=== PATIENT | male | born 2000 | race Caucasian/White ===

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

== ENCOUNTER 2021-05-24 16:28 | Inpatient (IN) | payer OTHER ==
[~2021-05-24] VITALS: Ht 180.3 cm; Wt 113.0 kg
--- NOTE | 2021-05-24 16:40 | NUR ---
TO ROOM FOR TRIAGE. MOTHER PRESENT
--- NOTE | 2021-05-24 17:00 | NUR ---
MEDICATED WITH MORPHINE 4MG IVP FOR C/O 10/10 ABD PAIN.
[2021-05-24 17:09] LABS: GFR > 60 ML/MIN (>=60 (CALC)); GFR FOR AFR.AMER. > 60 ML/MIN (>=60 (CALC))
[2021-05-24 17:28] LABS: HEMATOCRIT 43.8 % (39.0-50.0); HEMOGLOBIN 14.9 g/dl (14.0-18.0); IMMATURE GRANULOCYTES 1.1 % (0.0-5.0); MEAN CELL VOLUME 90.1 fL CALC (80.0-100.0); MEAN CORPUSCULAR HGB 30.7 pG CALC (26.0-32.0); NEUT# 22.88 thou/uL (1.82-7.42); RED BLOOD COUNT 4.86 mill/uL (4.70-6.10); RED CELL DISTRI WIDTH 13.2 % (11.5-15.5)
[2021-05-24 17:39] LABS: ALBUMIN 4.4 g/dL (3.2-5.0); ALKALINE PHOSPHATASE 37 u/l (38-126); ANION GAP 16 (6-22 (CALC)); BUN 18 mg/dL (8-21); BUN/CREATININE RATIO 21 (12-20 (CALC)); CARBON DIOXIDE 24 mmol/l (22-30); CHLORIDE 94 mmol/l (95-108); CREATININE 0.9 mg/dL (0.7-1.3); GFR > 60 ML/MIN (>=60 (CALC)); GFR FOR AFR.AMER. > 60 ML/MIN (>=60 (CALC)); LIPASE < 10 u/l (23-300); POTASSIUM 3.7 mmol/l (3.5-5.1); SGOT/AST 38 u/l (17-59); SODIUM 131 mmol/l (137-146); TOTAL PROTEIN 7.8 g/dL (6.3-8.2)
[2021-05-24 19:49] LABS: URINE BILIRUBIN - DIPSTICK NEGATIVE (NEGATIVE); URINE BLOOD DIPSTICK SMALL (NEGATIVE); URINE COLOR ORANGE; URINE GLUCOSE - DIPSTICK NEGATIVE (NEGATIVE); URINE KETONE TRACE mg/dL (NEGATIVE); URINE LEUK ESTERASE NEGATIVE (NEGATIVE); URINE PH 5.5 (4.5-8.0); URINE PROTEIN - DIPSTICK 30 mg/dL (NEG-TRACE); URINE SPECIFIC GRAVITY 1.015
[2021-05-24 20:01] LABS: URINE NITRITE - DIPSTICK POSITIVE (Negative)
[2021-05-24 22:30] VITALS: BP 146/87
[2021-05-24 22:45] VITALS: BP 129/73
[2021-05-24 23:10] VITALS: BP 125/69
[2021-05-24 23:25] VITALS: BP 122/77
[2021-05-24 23:55] VITALS: BP 102/60
[2021-05-25 01:25] VITALS: BP 111/67
--- NOTE | 2021-05-25 01:57 | NUR ---
05/24/212229 PATIENT RECIEVED TO ROOM 278 POST-OP. BEDSIDE REPORT RECEIVED FROM PACU NURSE. PATIENT AWAKE, ALERT AND ORIENTED X3. VSS. LAC IV INTACT AND PATENT. ABDOMEN TENDER TO TOUCH. DRESSING TO MID ABDOMEN, CLEAN DRY AND INTACT. PINKY NOTED TO LEFT ABDOMEN, SCANT AMOUNT OF SANGUINEOUS FLUID. URINARY CATHETER TO GRAVITY, CLEAR HECTOR URINE NOTED. SCD APPLIED TO BILATERAL LOWER EXTREMITIES. PATIENT DENIES PAIN AT THIS TIME. NO DISTRESS NOTED. CALL LIGHT WITHIN REACH INSTRUCTED TO CALL FOR ASSISTANCE.
[2021-05-25 04:37] VITALS: BP 158/74
--- NOTE | 2021-05-25 07:00 | NUR ---
REPORT FROM MAE HUANG. ASSUMED PT CARE.
[2021-05-25 08:31] LABS: HEMOGLOBIN 13.5 g/dl (14.0-18.0); MEAN CELL VOLUME 89.9 fL CALC (80.0-100.0); MEAN CORPUSCULAR HGB 30.3 pG CALC (26.0-32.0); MEAN CORPUSCULAR HGB CONC 33.8 g/dL CAL (32.0-36.0); NEUT# 10.7 thou/uL (1.82-7.42); RED BLOOD COUNT 4.45 mill/uL (4.70-6.10); RED CELL DISTRI WIDTH 13.4 % (11.5-15.5)
--- NOTE | 2021-05-25 08:50 | NUR ---
PT NOTED SITTING UP IN BED. NO APPARENT DISTRESS NOTED. PT DENIES ANY PAIN OR DISCOMFORT. ABD BINDER IN PLACE. DRESSING CDI. IV FLUIDS INFUSING WITHOUT DIFFICULTY. WHEAT PATENT DRAINING TO GRAVITY. PINKY DRAIN NOTED WITH SEROSANGUINOUS DRAINING IN BULB. NO CURRENT WANTS OR NEEDS. DISCUSSED POC. PT VERBALIZED UNDERSTANDING. ICE CHIPS PROVIDED. CALL LIGHT WITHIN REACH. WILL CONTINUE TO MONITOR.
[2021-05-25 08:54] LABS: ANION GAP 13 (6-22 (CALC)); BUN 19 mg/dL (8-21); BUN/CREATININE RATIO 23 (12-20 (CALC)); CARBON DIOXIDE 22 mmol/l (22-30); CHLORIDE 102 mmol/l (95-108); CREATININE 0.8 mg/dL (0.7-1.3); GFR > 60 ML/MIN (>=60 (CALC)); GFR FOR AFR.AMER. > 60 ML/MIN (>=60 (CALC)); POTASSIUM 3.4 mmol/l (3.5-5.1); SODIUM 133 mmol/l (137-146)
[2021-05-25 10:35] VITALS: BP 150/92
--- NOTE | 2021-05-25 10:43 | NUR ---
PT MOTHER UPDATED AT THIS TIME.
--- NOTE | 2021-05-25 11:15 | NUR ---
PT C/O CHEST PRESSURE AND ABD PAIN 05/22. CURRENT VS 198/105 HR 118, 96% RA TEMP 99.6 RR 22. PT ALSO HAS C/O NAUSEA, MEDICATED FOR PAIN AND NAUSEA AT THIS TIME. STAT EKG ORDERED. WHEAT PATENT DRAINING TO GRAVITY. DRESSING CDI, WITH ABD BINDER IN PLACE. PINKY DRAIN NOTED WITH SMALL AMOUNT OF SEROSANGUINEOUS DRAINAGE. PHYSICIAN NOTIFIED. WILL CONTINUE TO MONITOR.
[2021-05-25 12:42] VITALS: BP 145/74
--- NOTE | 2021-05-25 13:30 | NUR ---
DR KATE AT BEDSIDE.
[2021-05-25 15:21] VITALS: BP 168/97
--- NOTE | 2021-05-25 17:20 | NUR ---
PT RESTING IN BED. NO APPARENT DISTRESS NOTED. RESPIRATIONS EVEN AND UNLABORED. CALL LIGHT WITHIN REACH. WILL CONTINUE TO MONITOR.
[2021-05-25 18:55] VITALS: BP 151/94
--- NOTE | 2021-05-25 20:10 | NUR ---
SITTING UP IN BED WATCHING TELEVISION. C/O LEFT SIDE ABDOMINAL PAIN 6 ON SCALE 0-10. SCANT AMOUNT OF DRAINAGE NOTED IN PINKY DRAIN. PATIENT MEDICATED WITH 0.5MG OF DILAUDID FOR PAIN. NO FURTHER CONCERNS EXPRESSED. CALL LIGHT WITHIN REACH.-
--- NOTE | 2021-05-25 21:00 | NUR ---
RESTING QUIETLY IN BED, SPOUSE AT BEDSIDE. NGT TO LOW CONTINUOUS SUCTION, GREEN DRAINAGE NOTED. RESPIRATIONS EVEN, UNLABORED; EXPIRATORY WHEEZES NOTED. ABDOMEN DISTENDED, TENDER TO TOUCH. PINKY DRAINS PATENT. WHEAT TO GRAVITY, DARK HECTOR URINE NOTED. NO DISTRESS NOTED AT THIS TIME. VERBALIZES PAIN IS 3 ON SCALE 0-10. CALL LIGHT WITHIN REACH.
--- NOTE | 2021-05-25 23:13 | NUR ---
05/25/212009 SITTING UP IN BED WATCHING TV. C/O LEFT SIDED ABDOMINAL PAIN 6 ON SCALE 0-10. PINKY DRAIN PATENT, SCANT AMOUNT OF DRAINAGE NOTED. DILAUDID 0.5MG GIVEN. NO FURTHER CONCERNS EXPRESSED, CALL LIGHT WITHIN REACH.
[2021-05-26] VITALS: BP 153/92
--- NOTE | 2021-05-26 00:29 | NUR ---
DISCONTINUED 16F URINARY CATHETER. 10ML SALINE REMOVED FROM BALLOON. 600ML OF URINE EMPTIED FROM BAG. INSTRUCTED ON USE OF URINAL FOR MEASUREMENT. PATIENT TOLERATED WELL.
--- NOTE | 2021-05-26 03:14 | NUR ---
FIRST VOID AFTER WHEAT D/C'D, 275ML URINE OUT.
[2021-05-26 04:00] VITALS: BP 140/82
--- NOTE | 2021-05-26 04:47 | NUR ---
RESTING QUIETLY EYES CLOSED. BED IN LOW POSITION. CALL LIGHT WITHIN REACH.
--- NOTE | 2021-05-26 07:00 | NUR ---
PT REPORT RECEIVED FROM NIGHT NURSEDIXIE.
[2021-05-26 08:00] VITALS: BP 149/78
--- NOTE | 2021-05-26 08:00 | NUR ---
PT WAS FOUND RESTING IN BED IN SEMI-DONALD'S POSITION;PT IS A&OX3;VS AND ASSESSMENT WERE COMPLETED;HEART SOUNDS ARE REGULAR IN RATE AND RHYTHM;LUNG SOUNDS ARE CLEAR;RESPIRATIONS ARE EVEN AND UNLABORED ON RA;PT IS POST-OP APPENDECTOMY DAY 2;PT HAS A PINKY DRAIN IN THE LEFT ABDOMEN THAT IS DRAINING SEROSANGUINOUS FLUID AT THIS TIME;SURGICAL DRESSING IN CDI WITH AN ABDOMINAL BINDER IN PLACE OVER THE TOP;SCDS IN PLACE;#20G IV IN LAC IS RUNNING D5 1/2NS@100ML/HR;IV SITE APPEARS FREE OF COMPLICATIONS AT THIS TIME;SAFETY PRECAUTIONS IN PLACE;CALL LIGHT WITHIN REACH;PT ENCOURAGED TO CALL WITH ANY NEEDS OR CONCERNS;WILL CONTINUE TO MONITOR.
--- NOTE | 2021-05-26 10:30 | NUR ---
AND TALIB ARMSTRONG AT BEDSIDE DISCUSSING POC WITH PT
--- NOTE | 2021-05-26 11:00 | NUR ---
IS AT BEDSIDE DISCUSSING POC WITH PT
--- NOTE | 2021-05-26 12:00 | NUR ---
PT WAS FOUND RESTING IN BED;DRESSING CHANGE WAS COMPLETED ON SURGICAL WOUND;4X4,GAUZE,ABD PAD AND TAPE WERE APPLIED;SURGICAL INCISION APPEARS FREE OF INFECTION AND IS INTACT AT THIS TIME;ABDOMINAL BINDER WAS REAPPLIED OVER THE TOP;SAFETY PRECAUTIONS IN PLACE;CALL LIGHT WITHIN REACH;WILL CONTINUE TO MONITOR.
--- NOTE | 2021-05-26 12:04 | NUR ---
Preliminary blood culture results show Gram (+) cocci in 1/[address] vials. Results reported to Dr. Craig. No new orders.
[2021-05-26 15:03] VITALS: BP 162/91
--- NOTE | 2021-05-26 16:00 | NUR ---
PT WAS FOUND SLEEPING IN BED;#20G IV IN LAC IS INFUSING D5 1/2NS@75ML/HR;IV SITE APPEARS FREE OF COMPLICATIONS AT THIS TIME;SAFETY PRECAUTIONS IN PLACE;CALL LIGHT WITHIN REACH;WILL CONTINUE TO MONITOR.
[2021-05-26 19:00] VITALS: BP 165/94
--- NOTE | 2021-05-26 20:00 | NUR ---
PATIENT RESTING IN BED AT THIS TIME-AWAKE ALERT AND ORIENTEDX3. PATIENT WITH NO APPETITE FOR DINNER. ONLY TAKING PO FLUIDS. STATES THAT HIS PAIN IS BETTER. ABD DRESSING IS CDI WITH PINKY DRAIN TO LEFT ABD INTACT AND DRAINING SMALL AMT OF SEROSANGUINOUS FLUID. ABD BINDER REPOSITIONED. ABD IS SOFT WITH HYPOACTIVE BS. IVF D51/2NS PATENT AND INFUSING VIA LAC SITE AT 75CC/HR. SITE REMAINS HEALTHY. SCD'S OFF AT THIS TIME PER PATIENT REQUEST-TOO HOT. ENCOURAGED AMBULATION IN [facility] WITH STAFF. NO PERIPHERAL EDEMA NOTED. PULSES ARE PALPABLE. SAFETY PRECAUTIONS REINFORCED. CALL LIGHT IN REACH.WILL CONT TO MONITOR.
--- NOTE | 2021-05-26 21:00 | NUR ---
PATIENT UP AND AMBULATING IN THE [place] WITH STAFF ON [id number] TO BED. STATES THAT HE IS PASSING SOME FLATUS. CALL LIGHT IN REACH. WILL CONT TO MONITOR.
[2021-05-27] VITALS: BP 143/75
--- NOTE | 2021-05-27 01:18 | NUR ---
PATIENT RESTING IN BED-C/O POST-OP PAIN 9/10 ON PAIN SCALE. MEDICATED WITH DILAUDID 1MG IVP FOR PAIN. ABD BINDER ADJUSTED. VOIDED 700CC OF HECTOR URINE IN URINAL. IVF PATENT AND INFUSING VIA LEFT AC SITE AT 75CC/HR. PROVIDED WITH GATORADE AND ICE. CALL LIGHT IN REACH. WILL CONT TO MONITOR.
[2021-05-27 04:00] VITALS: BP 147/79
--- NOTE | 2021-05-27 04:27 | NUR ---
PATIENT RESTING IN BED-C/O NAUSEA AND SPIT UP SMALL AMT OF CLEAR SECREATIONS. MEDICATED WITH ZOFRAN 4MG IVP FOR NAUSEA. IVF D51/2NS PATENT AND INFUSING VIA LEFT AC SITE. SITE REMAINS HEALTHY. CALL LIGHT IN REACH. WILL CONT TO MONITOR,
--- NOTE | 2021-05-27 06:13 | NUR ---
PATIENT RESTING IN BED. STATES THAT HE IS FEELING BETTER. WAS UP TO BSC AND HAD LIQUID BROWN STOOL-MODERATE AMT. IVF PATENT AND INFUSING VIA LAC SITE ORDERED. ZOSYN HUNG ORDERED. INSTRUCTED ONUSE OF IS Q1H WHILE AWAKE IN REPS OF 10. ABLE TO DEMONSTRATE PROPER USE OF THE DEVICE. PINKY DRAINED 10CC SEROSANGUNIOUS FLUID THIS SHIFT. DRINKING GATORADE AT THIS TIME. CALL LIGHT IN REACH. WILL CONT TO MONITOR.
[2021-05-27 06:29] LABS: HEMATOCRIT 34.1 % (39.0-50.0); IMMATURE GRANULOCYTES 0.4 % (0.0-5.0); MEAN CELL VOLUME 91.7 fL CALC (80.0-100.0); MEAN CORPUSCULAR HGB 30.4 pG CALC (26.0-32.0); MEAN CORPUSCULAR HGB CONC 33.1 g/dL CAL (32.0-36.0); NEUT# 6.99 thou/uL (1.82-7.42); RED BLOOD COUNT 3.72 mill/uL (4.70-6.10); RED CELL DISTRI WIDTH 14.1 % (11.5-15.5)
[2021-05-27 06:30] LABS: HEMOGLOBIN 11.3 g/dl (14.0-18.0)
[2021-05-27 06:32] LABS: ANION GAP 13 (6-22 (CALC)); BUN 13 mg/dL (8-21); BUN/CREATININE RATIO 20 (12-20 (CALC)); CARBON DIOXIDE 24 mmol/l (22-30); CHLORIDE 100 mmol/l (95-108); CREATININE 0.7 mg/dL (0.7-1.3); GFR > 60 ML/MIN (>=60 (CALC)); GFR FOR AFR.AMER. > 60 ML/MIN (>=60 (CALC)); POTASSIUM 3.1 mmol/l (3.5-5.1); SODIUM 133 mmol/l (137-146)
--- NOTE | 2021-05-27 10:33 | NUR ---
PT SEEN AWAKE, ALERT, ORIENTED X 3. PT WITH ABDOMINAL BINDER IN PLACE, MEDICATED FOR PAIN NEEDED. PT AMBULATORY IN ROOM. STOOL INCONTINENCE PER WATERY STOOL. NAD.
--- NOTE | 2021-05-27 13:55 | NUR ---
PT SEEN BY DR KATE THIS MORNING, PAIN MED CHANGED TO PO. PT TOLERATING CLEAR LIQUIDS A LITTLE AT A TIME. NAD.
[2021-05-27 16:05] VITALS: BP 143/87
--- NOTE | 2021-05-27 18:31 | NUR ---
DRESSING CHANGED TO LAC IV SITE, REDRESSED WHEN IN LEAKED. PT TRYING TO EAT A LITTLE, APPETITE NOT THERE.
[2021-05-27 19:00] VITALS: BP 116/81
--- NOTE | 2021-05-27 19:35 | NUR ---
PATIENT ALERT. ABLE TO MAKE NEEDS KNOW. VERY PLEASANT. ASSESSMENT DONE AT THIS TIME. ABDOMINAL BINDER REMAINS IN PLACE. DRESSING TO ABDOMINAL AREA APPEARS CLEAN DRY AND INTACT. PINKY DRAIN PATENT WITH VERY MINIMAL LIGHT RED OUTPUT. PATIENT HAS NO COMPLAINTS AT THIS TIME. ''I COULD SLEEP ALL NIGHT IF I COULD''. IV SITE TO LEFT AC APPEARS PATENT. BED IN LOWEST POSITION. CALL LIGHT AND BELONGINGS WITHIN REACH.
--- NOTE | 2021-05-27 20:12 | NUR ---
LOVENOX GIVEN PER ORDER. PATIENT REQUESTED TO BE ABLE TO COUNT BEFORE RECEIVING MEDICATION. MEDICATION GIVEN AFTER PATIENT COUNTED TO 3. PATIENT TOLERATED WELL. BED IN LOWEST POSITION. CALL LIGHT REMAINS WITHIN REACH.
--- NOTE | 2021-05-28 00:07 | NUR ---
GAVE PATIENT PRN PAIN MEDICATION PER REQUEST. TOLERATED WELL. EMPTIED PATIENTS URINAL WITH 500CC YELLOW URINE. PATIENT REQUESTED ORANGE JUICE AND RECEIVED IT.
[2021-05-28 01:32] VITALS: BP 135/66
--- NOTE | 2021-05-28 02:35 | NUR ---
PATIENT ASLEEP IN BED WITH EYES CLOSED AT THIS TIME. NO SIGNS OF DISTRESS OR PAIN OBSERVED. BED REMAINS IN LOWEST POSITION WITH CALL LIGHT IN REACH.
[2021-05-28 04:00] VITALS: BP 138/70
--- NOTE | 2021-05-28 07:05 | NUR ---
REPORT RECEIVED FROM AYUSHRN
[2021-05-28 09:39] VITALS: BP 132/86
--- NOTE | 2021-05-28 09:40 | NUR ---
PT RESTING IN SEMI FOWLERS POSITION,A&O X3;VS OBTAINED AND ASSESSMENT COMPLETED;PT DENIES ANY CURRENT PAIN OR DISCOMFORTS,PAIN SCALE AND REPORTING EDUCATED;PT POD #4 EXPLORATORY LAPAROTOMY WITH APPENDECTOMY;RESPIRATIONS EVEN AND UNLABORED ON RA,CLEAR LUNG SOUNDS;ABDOMEN SOFT ON PALPATION AND HYPOACTIVE IN ALL 4 QUADRANTS;ABDOMINAL DRESSING CDI AND TO BE CHANGED, PINKY DRAIN TO LEFT QUADRANT NOTED WITH MINIMAL DRAINAGE NOTED;ABDOMINAL DRESSING CDI;STRONG PEDAL PULSES;NO IV SITE, SITE TO BE PLACED BY WRITTER;PT DENIES ANY ADDITIONAL NEEDS AND IS ENCOURAGED TO CALL FOR ASSISTANCE IF NEEDED;FALL PRECAUTIONS IN PLACE WITH BED IN THE LOWEST POSITION AND CALL LIGHT IN REACH;WILL CONTINUE TO MONITOR
--- NOTE | 2021-05-28 11:19 | NUR ---
PT REPORTS ABDOMINAL PAIN RATING 6/10 ON THE PAIN SCALE AND REQUESTS PAIN MEDICATION,PT MEDICATED WITH PRN PERCOCET 5/325MG PO;NEW #22G STARTED TO RAC ON 1ST ATTEMPT AND PT TOLERATED WELL;ABDOMINAL DRESSING CHANGED AT THIS TIME AND PT TOLERATED WELL;PT DENIES ANY ADDITIONAL NEEDS AND IS ENCOURAGED TO CALL FOR ASSISTANCE IF NEEDED;CALL LIGHT IN REACH;WILL CONTINUE TO MONITOR
--- NOTE | 2021-05-28 12:30 | NUR ---
PT RESTING IN SEMI FOWLERS POSITION;RESPIRATIONS EVEN AND UNLABORED ON RA;PT DENIES ANY CURRENT PAIN OR NEEDS;IV SITE PATENT;ABDOMINAL DRESSING CDI;PINKY DRAIN IN PLACE;PT DENIES ANY ADDITIONAL NEEDS;ENCOURAGED TO CALL FOR ASSISTANCE IF NEEDED;CALL LIGHT IN REACH;WILL CONTINUE TO MONITOR
[2021-05-28 15:20] VITALS: BP 139/81
--- NOTE | 2021-05-28 15:35 | NUR ---
PT APPEARS TO BE SLEEPING IN SEMI FOWLERS POSITION;RESPIRATIONS APPEAR EVEN AND UNLABORED ON RA;NO S/S OF DISTRESS NOTED;IV SITE TO RAC PATENT;ALL SAFETY PRECAUTIONS REMAIN IN PLACE WITH BED IN THE LWOEST POSITION AND CALL LIGHT IN REACH;WILL CONTINUE TO MONITOR
--- NOTE | 2021-05-28 17:30 | NUR ---
PT MEDICATED WITH PRN PERCOCET 5/325MG PO FOR ABDOMINAL PAIN RATING 9/10 ON THE PAIN SCALE;PT TO BE MEDICATED WITH PRN ZOFRAN 4MG IVP;PINKY DRAIN EMPTIED OF 5CC AT THIS TIME;PT DENIES ANY ADDITIONAL NEEDS;CALL LIGHT IN REACH;WILL CONTINUE TO MONITOR
[2021-05-28 19:19] VITALS: BP 144/84
--- NOTE | 2021-05-28 19:30 | NUR ---
ASSESSMENT DONE AT THIS TIME. PATIENT ALERT AND ORIENTED. ABLE TO VOICE NEEDS. IV SITE TO RIGHT ARM CDI. PINKY DRAIN IN PLACE. DRESSING TO ABDOMEN CHANGED ON DAY SHIFT. DRESSING APPEARS CDI. ABOMINAL BINDER ON. PATIENT HAS NO COMPLAINTS AT THIS TIME. URINAL EMPTIED WITH 200CC DARK YELLOW URINE. BED REMAINS IN LOWEST POSITION. CALL LIGHT AND BELONGINGS WITHIN REACH.
--- NOTE | 2021-05-28 21:17 | NUR ---
PATIENT RECEIVED SCHEDULED MEDICATION. TOLERATED WELL. DENIES ANY PAIN AT THIS TIME. GAVE PATIENT A GATORADE PER REQUEST.
--- NOTE | 2021-05-28 21:53 | NUR ---
PATIENT RESTING IN BED AT THIS TIME-AWAKE ALERT AND ORIENTEDX3. [id number] AT THIS TIME. NO HUMALOG COVERAGE REQUIRED. LEVEMIR 25UNITS SQ GIVEN ORDERED. HS SNACK PROVIDED. PATIENT MEDICATED WITH LASIX 40MG IVP ORDERED VIA RIGHT AC SITE. SITE REMAINS HEALTHY WITH GOOD BLOOD RETURN. TELE MONITOR REMAINS IN PLACE- INITAIL READING WAS [id number] 1ST DEGREE AVB. SAFETY PRECAUTIONS REINFORCED. CALL LIGHT IN REACH. WILL CONT TO MONITOR.
[2021-05-29 04:57] VITALS: BP 137/77
--- NOTE | 2021-05-29 05:15 | NUR ---
REQUESTED BOTTLE OF WATER AND ICE. NO COMPLAINTS VOICED AT THIS TIME. BED REMAINS IN LOWEST POSITION. CALL LIGHT IN REACH.
[2021-05-29 06:09] LABS: HEMATOCRIT 34.9 % (39.0-50.0); HEMOGLOBIN 11.7 g/dl (14.0-18.0); MEAN CELL VOLUME 89.9 fL CALC (80.0-100.0); MEAN CORPUSCULAR HGB 30.2 pG CALC (26.0-32.0); MEAN CORPUSCULAR HGB CONC 33.5 g/dL CAL (32.0-36.0); RED BLOOD COUNT 3.88 mill/uL (4.70-6.10); RED CELL DISTRI WIDTH 13.9 % (11.5-15.5)
[2021-05-29 06:13] LABS: ANION GAP 13 (6-22 (CALC)); BUN 9 mg/dL (8-21); BUN/CREATININE RATIO 16 (12-20 (CALC)); CARBON DIOXIDE 26 mmol/l (22-30); CHLORIDE 100 mmol/l (95-108); CREATININE 0.6 mg/dL (0.7-1.3); GFR > 60 ML/MIN (>=60 (CALC)); GFR FOR AFR.AMER. > 60 ML/MIN (>=60 (CALC)); MAGNESIUM 1.9 mg/dL (1.6-2.3); POTASSIUM 3.3 mmol/l (3.5-5.1); SODIUM 136 mmol/l (137-146)
--- NOTE | 2021-05-29 07:05 | NUR ---
REPORT RECEIVED FROM SAL BALES
[2021-05-29 09:40] VITALS: BP 140/66
--- NOTE | 2021-05-29 09:40 | NUR ---
PT RESTING IN SEMI FOWLERS POSITION,A&O X3;VS OBTAINED AND ASSESSMENT COMPLETED;PT DENIES ANY CURRENT PAIN OR DISCOMFORTS,PAIN SCALE AND REPORTING EDUCATED;PT POD #5 EXPLORATORY LAPAROTOMY WITH APPENDECTOMY;RESPIRATIONS EVEN AND UNLABORED ON RA,CLEAR LUNG SOUNDS;ABDOMEN DISTENDED/SOFT ON PALPATION AND ACTIVE IN ALL 4 QUADRANTS;ABDOMINAL BINDER AND DRESSINGS CDI;PINKY DRAIN NOTED TO LEFT QUADRANT;STRONG PEDAL PULSES;#22G TO RAC FLUSHED AND PATENT,SITE APPEARS HEALTHY;PT DENIES ANY ADDITIONAL NEEDS AND IS ENCOURAGED TO CALL FOR ASSISTANCE IF NEEDED;FALL PRECAUTIONS IN PLACE WITH BED IN THE LOWEST POSITION AND CALL LIGHT IN REACH;WILL CONTINUE TO MONITOR
--- NOTE | 2021-05-29 11:45 | NUR ---
PT RESTING IN SEMI FOWLERS POSITION;RESPIRATIONS EVEN AND UNLABORED ON RA;PT DENIES ANY CURRENT PAIN OR DISCOMFORTS;IV SITE PATENT TO RAC AND ABX STARTED AT THIS TIME;ABDOMINAL BINDER AND DRESSING CDI WITH PINKY IN PLACE;PT ENCOURAGED TO CALL FOR ASSISTANCE IF NEEDED;CALL LIGHT IN REACH;WILL CONTINUE TO MONITOR
--- NOTE | 2021-05-29 12:12 | NUR ---
AT BEDSIDE DISCUSSING POC.
--- NOTE | 2021-05-29 13:04 | NUR ---
PT MEDICATED WITH PRN PERCOCET 5/325MG PO FOR ABDOMINAL PAIN RATING 7/10 ON THE PAIN SCALE,WILL CONTINUE TO MONITOR FOR EFFECTIVENESS
[2021-05-29 14:45] VITALS: BP 135/73
--- NOTE | 2021-05-29 15:00 | NUR ---
PT RESTING IN RECLINER;RESPIRATIONS EVEN AND UNLABORED ON RA;PT DENIES ANY CURRENT PAIN OR NEEDS;IV SITE TO RAC PATENT;ABDOMINAL DRESSING CHANGED AT THIS TIME AND PT TOLERATED WELL, ABDOMINAL BINDER REPLACED;PINKY DRAIN NOTED WITH MINIMAL OUTPUT;PT AMBULATED THE HALLWAYS WITH A STEADY GAIT;PT DENIES ANY ADDITIONAL NEEDS;ENCOOURAGED TO CALL FOR ASSISTANCE IF NEEDED;WILL CONTINUE TO MONITOR
[2021-05-29 19:00] VITALS: BP 146/81
--- NOTE | 2021-05-29 20:00 | NUR ---
PATIENT RESTING IN BED AT THIS TIME-AWAKE ALERT AND ORIENTEDX3. PATIENT STATES THAT HE IS FEELING BETTER. INCREASING HIS ACTIVITY AND AMB IN THE HALLS. ABD DRESSING IS CLEAN DRY AND INTACT. PINYK DRAIN INTACT WITH ONLY SCANT AMT OF SEROUS DRAINAGE NOTED. ABD IS SOFT WITH ACTIVE BS. STATES THAT HE HAD BM TODAY AND THEY ARE BECOMING MORE NORMAL-NOT WATERY. VOIDING QS CLEAR YELLOW URINE IN URINAL. ABD BINDER RERADJUSTED SAFETY PRECAUTIONS. CALL LIGHT IN REACH. WILL CONT TO MONITOR.
--- NOTE | 2021-05-30 00:26 | NUR ---
PATIENT RESTING IN BED AT THIS TIME WITH HOB ELEVATED. EYES ARE CLOSED. RESPS ARE EVEN AND UNLABORED. ZOSYN HUNG AND INFUSING VIA RAC SITE ORDERED. CALL LIGHT IN REACH. WILL CONT TO MONITOR.
--- NOTE | 2021-05-30 01:32 | NUR ---
PATIENT RESTING IN BED AT THIS TIME-AWAKE ALERT AND ORIENTEDX3. PATIENT STATES THAT HE IS FEELING BETTER. INCREASING HIS ACTIVITY AND AMB IN THE HALLS. ABD DRESSING IN CLEAN SURENDRA AND INTACT. PINKY DRAIN INTACT WITH ONLY SCANT AMT OF SEROUS DRAINAGE NOTED. ABD IS SOFT WITH ACTIVE BS. STATES THAT HE HAD BM TODAY. STATES THT THE BM'S ARE BECOMING MORE "NORMAL". LESS WATERY. VOIDING QS YELLOW URINE IN URINAL. SALINE LOCK TO RAC INTACT AND HEALTHY AT THIS TIME. ABD BINDER WAS READJUSTED. SAFETY PRECAUTIONS REINFORCED. CALL LIGHT IN REACH. WILL CONT TO MONITOR.
[2021-05-30 04:00] VITALS: BP 143/86
--- NOTE | 2021-05-30 06:32 | NUR ---
PATIENT RESTING IN BED. C/O POST-OP PAIN 6/10 ON PAIN SCALE. MEDICATED WITH PERCOCET 5/325MG PO FOR PAIN. PINKY DRAIN EMPTIED FOR 10CC OF DARK BROWN FLUID. ZOSYN COMPLETED. CALL LIGHT IN REACH. WILL CONT TO MONITOR.
[2021-05-30 08:04] VITALS: BP 136/84
[2021-05-30 10:11] VITALS: BP 136/84
--- NOTE | 2021-05-30 10:30 | NUR ---
BEDSIDE REPORT RECEIVED THIS AM. ASSESSMENT COMPLETED. PT RECENTLY RECEIVED PAIN MEDICATION PRIOR TO SHIFT CHANGE. PT NOW HAS C/O 3/10 PAIN IN ABD, INS AREA, PT MEDICATED. ORDER TO REMOVE DRAIN RECEIVED. PT REQUEST TO SHOWER, IV AND DRAINS COVERED. PT ASSISTED BY PCT. FALL PRECATIONS IN PLACE.
--- NOTE | 2021-05-30 11:45 | NUR ---
PINKY DRAIN REMOVED FROM RLA, NO BLEEDING,CLEANSED, GAUZE/TEGADERM APPLIED.NO COMPLAINTS/DISTRESS NOTED.
--- NOTE | 2021-05-30 12:15 | NUR ---
PT IN BED WATCHING TV. PT AMBULATED 200+ FT THIS AM W STAND BY ASSISTANCE, NO DIFFICULTY NOTED WITH GAIT. NO FURTHER C/O PAIN/DISTRESS.
[2021-05-30] MEDS ORDERED: AMOX/K CLAV875 M1 PO (13:10)
[2021-05-30] MEDS ORDERED: PERCOCET 5/325M1 TAB PO (13:12)
--- NOTE | 2021-05-30 14:08 | NUR ---
IV REMOVED, PT AWAITING RIDE FROM FAMILY. D/C/EDUCATION PACKETGIVEN, NOTED OF F/U APT AND EDUCATION GIVEN PER NEW MEDICATIONS.
--- NOTE | 2021-05-30 15:04 | NUR ---
Discharge instructions given. Patient verbalizes understanding of same. Discharged in stable condition via Wheelchair to Home with family. All belongings sent with pt. PT TRANSPORTED TO LOBBY VIA [facility].
[2021-06-06] MEDS ORDERED: AMOX/K CLAV875 M1 PO (12:42)
== END 2021-05-30 15:03 | disposition home or self-care (01) | DRG 339 ==
LOC: ED 16:28 → ED-I 19:00 → ED 19:17 → MS2 19:18
PROVIDERS: Family Medicine; Nurse Practitioner; ADMIT Surgery; ATTEND Surgery
PROC: 0DTJ0ZZ Resection of Appendix, Open Approach (ICD-10-PCS; principal; 2021-05-24)
PROC: 0WJG4ZZ Inspection of Peritoneal Cavity, Percutaneous Endoscopic Approach (ICD-10-PCS; 2021-05-24)
DX: K35.33 Acute appendicitis with perforation, localized peritonitis, and gangrene, with abscess (principal); F84.0 Autistic disorder; J45.909 Unspecified asthma, uncomplicated; R00.0 Tachycardia, unspecified; I10 Essential (primary) hypertension; E87.6 Hypokalemia; Z20.822 Contact with and (suspected) exposure to COVID-19
CPT/HCPCS: J0131; J1650; J2710; Q9967